=== PATIENT | female | born 1985 | race Caucasian/White ===

== ENCOUNTER 2017-06-20 06:42 | Emergency (ER) | payer MEDICAID ==
[~2017-06-20] VITALS: Ht 167.6 cm; Wt 70.2 kg
[2017-06-20] MEDS ORDERED: PENI500T2 PO (06:59)
[2017-06-20] MEDS ORDERED: IBUP-1984 PO (06:59)
[2017-06-20] MEDS ORDERED: HYDR-565 PO (06:59)
[2017-06-20 07:19] VITALS: BP 125/75
== END 2017-06-20 07:20 | disposition home or self-care (01) ==
LOC: ER 06:42
DX: K08.89 Other specified disorders of teeth and supporting structures (principal); F17.200 Nicotine dependence, unspecified, uncomplicated; Z79.899 Other long term (current) drug therapy
CPT/HCPCS: 99283